=== PATIENT | male | born 1940 | race Caucasian/White ===

== ENCOUNTER → 2025-01-06 | Outpatient (CLI) | payer OTHER ==
[~2025-01-06] MED LIST: ASPI-1146 PO; ATOR40TA69 PO; CYAN-35 PO; FINA5TAB41 PO; GABA-529 PO; METF-446 PO; OMEP20CA12 PO; TAMS-55 PO
[2025-01-06 14:39] LABS: IMMATURE GRANULOCYTE ABSOLUTE 0.06 K/uL (0-1); NUCLEATED RED BLOOD CELLS 0.0 % (0.0-0.19); PLATELET COUNT (AUTO) 468 K/uL (130-400); RED BLOOD CELL COUNT(AUTO) 4.14 MIL/uL (4.50-6.20); RED CELL DISTRIBUTION WIDTH 14.5 % (11.0-15.5); WHITE BLOOD COUNT (AUTO) 13.1 K/uL (4.8-10.8)
[2025-01-06 15:04] LABS: % IRON SATURATION 8.1 % (30-44); IRON, SERUM 25.0 mcg/dL (65-175)
[2025-01-06 15:19] LABS: ASPARTATE AMINOTRANSFERASE 14.0 U/L (10-37); CREATININE 1.0 mg/dL (0.5-1.3); GLOMERULAR FILTR. RATE CALC 73.0 mL/min (>90); GLUCOSE,RANDOM 131.0 mg/dL (70-105); SODIUM SERUM 140.0 mmol/L (136-145); TOTAL PROTEIN, SERUM 8.0 g/dL (6.0-8.3); UREA NITROGEN, BLOOD 13.0 mg/dL (7-18)
== END | disposition home or self-care (01) ==
LOC: LAB 13:28
PROVIDERS: ATTEND Internal Medicine Gastroenterology
DX: C18.3 Malignant neoplasm of hepatic flexure (principal); D50.0 Iron deficiency anemia secondary to blood loss (chronic)
CPT/HCPCS: 36415; 80053; 82378; 82728; 83540; 83550; 85025

== ENCOUNTER → 2025-01-21 | Outpatient (CLI) | payer OTHER ==
[~2025-01-21] MED LIST changes: -ASPI-1146 PO; -ATOR40TA69 PO; -CYAN-35 PO; -FINA5TAB41 PO; -GABA-529 PO; +IOHEXOL 350 MG/ML 100ML INFUS..BTL IV ONE; -METF-446 PO; -OMEP20CA12 PO; -TAMS-55 PO
--- NOTE | 2025-01-22 00:53 | HMCIMG ---
CT CHEST, ABDOMEN AND PELVIS WITH AND WITHOUT CONTRAST, January 22, 2025 Clinical History: Malignant neoplasm of the hepatic flexure. Technique: Helical CT acquisition of the chest, abdomen, and pelvis was performed before and after administration of 99 mL of iodinated intravenous contrast. Coronal and sagittal reformats were obtained. Radiation Dose: Total exam DLP 2354.5 mGycm. Total CTDI volume 37.2 mGy. Comparison: No prior imaging available for comparison. Findings: Chest: Mild centrilobular and paraseptal emphysema is present. There is biapical pleuroparenchymal scarring. Minimal bibasilar streaky atelectasis is noted. A subpleural nodule measuring 1 cm is seen in the superior segment of the right lower lobe with adjacent scarring (series 3, image 37/65). Another subpleural nodule measuring 4 mm is present in the apicoposterior segment of the left upper lobe (series 3, image 15/65). No other pulmonary nodules or consolidation is seen. Degenerative changes of the thoracic vertebrae with hyperdense osteophytes are present. Mediastinum and Liza: There are few enlarged mediastinal lymph nodes, up to 6 mm in the pretracheal region. No significant hilar, axillary, or supraclavicular lymphadenopathy is identified. There are atheromatous calcifications of the thoracic aortic arch and the coronary arteries. Mitral and aortic valve annulus calcifications are present. Liver and Gallbladder: The liver is unremarkable. Dependent hyperdensity is present in the gallbladder lumen, which may represent sludge versus layered calculi. Pancreas: Unremarkable. Spleen: Unremarkable. Kidneys and Adrenals: The left kidney demonstrates a lower polar simple cyst measuring 4 cm with additional smaller upper and interpolar cysts. The right kidney demonstrates a lower polar calyceal calculus measuring 1 cm (HU 887). Delayed phase images demonstrate smooth, symmetric excretion through bilateral renal pelvicalyceal systems and ureters without hydroureteronephrosis. The adrenals are unremarkable. Urinary Bladder and Prostate: There is moderate prostatomegaly. Diffuse bladder wall thickening is present, likely related to chronic bladder outflow obstruction. No vesical calculus is seen. Bowel: There is irregular, asymmetric, circumferential thickening of the hepatic flexure of the colon measuring up to 3.8 cm with pericolonic fat stranding and nodularity. The thickened segment extends for approximately 10.2 cm and causes luminal narrowing; however, contrast passes smoothly across the segment. There is no invasion of the mass into the liver or the gallbladder. The largest pericolonic lymph node measures 1 cm. Colonic diverticula are present without evidence of diverticulitis. The appendix is unremarkable. Non-distended small bowel. Abdominal Aorta: Fusiform infrarenal abdominal aortic aneurysm measuring 2.9 cm in maximum caliber and 4.5 cm in length. Atheromatous calcifications are present without dissection. Bones: Degenerative changes of the thoracic and lumbar vertebrae with hyperdense osteophytes and endplate sclerosis. No lytic or sclerotic lesions otherwise. Other: Small fat-containing umbilical hernia with a defect measuring 1.2 cm. Impression: * Irregular, asymmetric, circumferential thickening of the hepatic flexure of the colon with pericolonic fat stranding and nodularity, causing luminal narrowing, suspicious for primary colonic malignancy. No invasion into adjacent structures. Largest pericolonic lymph node measures 1 cm. TNM staging (clinical/radiologic): cT3 N1 (T3: tumor invades through the muscularis propria into pericolonic fat; N1: 13 regional lymph nodes involved; M0: no distant metastasis identified). * Left kidney lower polar simple cyst (4 cm) with smaller interpolar and upper pole cysts. Right lower polar renal calculus (1 cm, HU 887). Normal contrast excretion without hydroureteronephrosis. * Fusiform infrarenal abdominal aortic aneurysm measuring 2.9 x 4.5 cm. * Moderate prostatomegaly with diffuse bladder wall thickening, consistent with chronic bladder outflow obstruction. * Subpleural nodules in the right lower lobe (1 cm) and left upper lobe (4 mm) with adjacent scarring; otherwise no acute pulmonary pathology. These are not typical for metastatic disease. However, PET CT correlation and follow up or recommended. /[place]
== END | disposition home or self-care (01) ==
LOC: RAH 10:06
PROVIDERS: ATTEND Internal Medicine Gastroenterology
DX: C18.3 Malignant neoplasm of hepatic flexure (principal); N28.1 Cyst of kidney, acquired; N20.0 Calculus of kidney; N40.0 Benign prostatic hyperplasia without lower urinary tract symptoms; J98.4 Other disorders of lung; N32.89 Other specified disorders of bladder; I71.43 Infrarenal abdominal aortic aneurysm, without rupture; K57.30 Diverticulosis of large intestine without perforation or abscess without bleeding; M47.814 Spondylosis without myelopathy or radiculopathy, thoracic region; M25.78 Osteophyte, vertebrae; K42.9 Umbilical hernia without obstruction or gangrene; J43.2 Centrilobular emphysema; I08.0 Rheumatic disorders of both mitral and aortic valves
CPT/HCPCS: 71270; 74178; Q9967